=== PATIENT | male | born 2000 | race Caucasian/White ===

== ENCOUNTER 2024-11-11 10:43 | Emergency (ER) | payer SELFPAY ==
[2024-11-11] VITALS (14 sets, daily range): BP systolic 127–157; BP diastolic 78–116; PULSE 100–115; RESP 10–24; TEMP 36.3–36.9; O2SAT 81–100
--- NOTE | ~2024-11-11 | XR_ITS ---
EXAMINATION: XR chest 1V portable 11/11/2024 11:49 INDICATION: Dyspnea and wheezing PROCEDURE: 2 view chest COMPARISON: No prior studies for comparison. FINDINGS: The lungs are clear. The cardiomediastinal silhouette is within normal limits. There are no pleural effusions. There is no pneumothorax suspected. IMPRESSION: 1: NO ACUTE CARDIOPULMONARY DISEASE. Reviewed, dictated and finalized at location B. [employer]
--- NOTE | 2024-11-11 11:21 | ED.ASTHMA ---
HPI - Asthma General Chief Complaint: Asthma <Jason Rodas PA-C - Last Filed: 11/11/24 17:28> Stated Complaint: asthma, sob <Jason Rodas PA-C - Last Filed: 11/11/24 17:28> Time Seen by Provider: 11/11/24 11:00 <Jason Rodas PA-C - Last Filed: 11/11/24 17:28> Source: patient <REGGIE Hess Last Filed: 11/11/24 17:28> Mode of arrival: ambulatory <REGGIE Hess Last Filed: 11/11/24 17:28> Limitations: no limitations <Jason Rodas PA-C - Last Filed: 11/11/24 17:28> History of Present Illness HPI Narrative: This is a 24-year-old male who presents to the ED for chief complaint of possible asthma attack. Patient reports that he ran out of inhaler last night. He has been working outside in the cold and has been having increased wheezing and dyspnea. Also reports that he has had a productive green cough x1 week with chills. States that he is getting ?mouthfuls of sputum production. Patient states he has had asthma as a life but only takes albuterol as needed. Denies chest pain, abdominal pain, nausea, vomiting. No recent hospitalizations for asthma <Jason Rodas PA-C - Last Filed: 11/11/24 17:28> Related Data Allergies/Adverse Reactions: Allergies Allergy/AdvReac Type Severity Reaction Status Date / Time No Known Allergies Allergy Verified 11/11/24 10:44 <Jason Rodas PA-C - Last Filed: 11/11/24 17:28> Review of Systems Review of Systems: All systems as dictated in HPI <REGGIE Hess Last Filed: 11/11/24 17:28> Exam Narrative: GENERAL: Well-appearing, well-nourished, and in no acute distress. HEAD: Normocephalic, atraumatic. EYES: PERRLA and EOMI. ENT: Nares clear, no rhinorrhea or epistaxis. Mucous membranes moist. Oropharynx without tonsillar hypertrophy exudate or other lesions. NECK: Supple. No adenopathy or masses. CHEST: Coarse breath sounds bilaterally. Expiratory wheezes bilaterally. 98% room air. HEART: Regular rate and rhythm. No murmur heard. Normal peripheral pulses. ABDOMEN: Soft, nontender, nondistended, normal active bowel sounds. MSK: Normal range of motion. No edema. SKIN: Warm, dry, no rash. NEURO: Alert and oriented x4. No focal deficits. PSYCH: Normal mood and affect. <Jason Rodas PA-C - Last Filed: 11/11/24 17:28> Course COMMUNICATIONS STRATEGIST/PA Physician Supervision I agree with midlevel documentation; I performed the medical decision making component of this evaluation. <Georgina Dotson MD - Last Filed: 11/11/24 17:30> Reevaluation(s) Reevaluation #1: Patient is doing better overall. There is significant improvement of the wheezing with the hour long breathing treatment and steroids. Still having moderate wheezes so will add magnesium prior to discharge <Jason Rodas PA-C - Last Filed: 11/11/24 17:28> Date: 11/11/24 <Jason Rodas PA-C - Last Filed: 11/11/24 17:28> Time: 12:56 <Jason Rodas PA-C - Last Filed: 11/11/24 17:28> Vital Signs Vital signs: Vital Signs Temperature 97.4 F L 11/11/24 10:53 Pulse Rate 110 H 11/11/24 10:53 Respiratory Rate 20 11/11/24 10:53 Blood Pressure 155/88 H 11/11/24 10:53 Pulse Oximetry 100 11/11/24 10:53 Oxygen Delivery Room Air 11/11/24 10:53 Temperature 98.5 F 11/11/24 14:48 Pulse Rate 102 H 11/11/24 14:48 Respiratory Rate 17 11/11/24 14:48 Blood Pressure 151/78 H 11/11/24 14:48 Pulse Oximetry 98 11/11/24 14:48 Oxygen Delivery Room Air 11/11/24 11:19 <Jason Rodas PA-C - Last Filed: 11/11/24 17:28> Vital Signs Temperature 97.4 F L 11/11/24 10:53 Pulse Rate 110 H 11/11/24 10:53 Respiratory Rate 20 11/11/24 10:53 Blood Pressure 155/88 H 11/11/24 10:53 Pulse Oximetry 100 11/11/24 10:53 Oxygen Delivery Room Air 11/11/24 10:53 Temperature 98.5 F 11/11/24 14:48 Pulse Rate 102 H 11/11/24 14:48 Respiratory Rate 17 11/11/24 14:48 Blood Pressure 151/78 H 11/11/24 14:48 Pulse Oximetry 98 11/11/24 14:48 Oxygen Delivery Room Air 11/11/24 11:19 <Georgina Dotson MD - Last Filed: 11/11/24 17:30> MDM - Asthma MDM Narrative Medical decision making narrative: This is a 24-year-old male who presents to the ED for asthma exacerbation. Vitals show mildly elevated heart rate on arrival. He has just run out of his home albuterol.. Exam shows diffuse wheezes. No overt respiratory distress. Saturating well on room air. Lab work normal white count on CBC. CMP is unremarkable. Chest x-ray does not show any pneumonia. Viral swabs are negative. Presentation consistent with acute flare of asthma. He was given hour long breathing treatment, Solu-Medrol and magnesium here with good relief symptoms. Rx for Medrol Dosepak albuterol as well as Symbicort given Patient will be discharged in stable condition. Supportive measures discussed and return precautions given. Patient is understanding and agreeable with plan for discharge with PCP follow-up. <Jason Rodas PA-C - Last Filed: 11/11/24 17:28> Lab Data Result diagrams: 11/11/24 11:34 11/11/24 11:34 <Jason Rodas PA-C - Last Filed: 11/11/24 17:28> Labs: Lab Results 11/11/24 11/11/24 Range/Units 11:34 11:46 WBC 7.6 (4.5-10.0) K/mm3 RBC 5.23 (4.6-6.20) M/mm3 Hgb 15.4 (14.0-18.0) g/dL Hct 45.0 (42.0-52.0) % MCV 86.0 (80-100) fl MCH 29.4 (26-34) pg MCHC 34.2 (32-36) g/dl RDW 13.2 (11.5-14.5) % Plt Count 200 (150-375) k/mm3 MPV 10.7 H (7.4-10.4) fl Immature Gran % (Auto) Not Reportable Neut % (Auto) Not Reportable Lymph % (Auto) Not Reportable [place] % (Auto) Not Reportable Eos % (Auto) Not Reportable Baso % (Auto) Not Reportable Lymph # (Auto) Not Reportable [place] # (Auto) Not Reportable Eos # (Auto) Not Reportable Baso # (Auto) Not Reportable Abs Immat Gran (auto) Not Reportable Absolute Neuts (auto) Not Reportable Absolute Nucleated RBC Not Reportable Total Counted 100 Neutrophils % (Manual) 56 (46-73) % Band Neutrophils % 8 H (0-6) % Lymphocytes % (Manual) 13 L (18-44) % Monocytes % (Manual) 7 (3-9) % Eosinophils % (Manual) 15 H (0-4) % Basophils % (Manual) 1 (0-1) % Nucleated RBC % Not Reportable Abs Neuts (Manual) 4.86 (1.3-6.7) K/mm3 Abs Lymphs (Manual) 0.98 L (1.1-4.5) K/mm3 Abs Monocytes (Manual) 0.53 (0.1-0.90) K/mm3 Absolute Eos (Manual) 1.14 H (0.02-0.50) K/mm3 Abs Basophils (Manual) 0.07 (0.0-0.1) K/mm3 Platelet Estimate Adequate (Adequate) Schistocytes None seen Sodium 139 (137-145) mmol/L Potassium 3.7 (3.4-5.0) mmol/L Chloride 100 (98-107) mmol/L Carbon Dioxide 31 H (22-30) mmol/L Anion Gap 8 (4-12) mmol/L BUN 9 (9-20) mg/dL Creatinine 0.80 (0.7-1.3) mg/dL Estim Creat Clear Calc 122 ml/min Estimated GFR > 60 (59 - ) Glucose 123 H (65-110) mg/dL Calcium 9.9 (8.4-10.2) mg/dL Total Bilirubin 0.6 (0.2-1.3) mg/dL AST 21 (17-59) U/L ALT 18 (6-50) U/L Alkaline Phosphatase 88 (38-126) U/L Total Protein 8.0 (6.3-8.2) g/dL Albumin 4.8 (3.5-5.1) g/dL Influenza A (RT-PCR) Negative (Negative) Influenza B (RT-PCR) Negative (Negative) RSV (RT-PCR) Negative (Negative) SARS-CoV-2 RNA (RT-PCR) Negative (Negative) <Jason Rodas PA-C - Last Filed: 11/11/24 17:28> Lab Results 11/11/24 11/11/24 Range/Units 11:34 11:46 WBC 7.6 (4.5-10.0) K/mm3 RBC 5.23 (4.6-6.20) M/mm3 Hgb 15.4 (14.0-18.0) g/dL Hct 45.0 (42.0-52.0) % MCV 86.0 (80-100) fl MCH 29.4 (26-34) pg MCHC 34.2 (32-36) g/dl RDW 13.2 (11.5-14.5) % Plt Count 200 (150-375) k/mm3 MPV 10.7 H (7.4-10.4) fl Immature Gran % (Auto) Not Reportable Neut % (Auto) Not Reportable Lymph % (Auto) Not Reportable [place] % (Auto) Not Reportable Eos % (Auto) Not Reportable Baso % (Auto) Not Reportable Lymph # (Auto) Not Reportable [place] # (Auto) Not Reportable Eos # (Auto) Not Reportable Baso # (Auto) Not Reportable Abs Immat Gran (auto) Not Reportable Absolute Neuts (auto) Not Reportable Absolute Nucleated RBC Not Reportable Total Counted 100 Neutrophils % (Manual) 56 (46-73) % Band Neutrophils % 8 H (0-6) % Lymphocytes % (Manual) 13 L (18-44) % Monocytes % (Manual) 7 (3-9) % Eosinophils % (Manual) 15 H (0-4) % Basophils % (Manual) 1 (0-1) % Nucleated RBC % Not Reportable Abs Neuts (Manual) 4.86 (1.3-6.7) K/mm3 Abs Lymphs (Manual) 0.98 L (1.1-4.5) K/mm3 Abs Monocytes (Manual) 0.53 (0.1-0.90) K/mm3 Absolute Eos (Manual) 1.14 H (0.02-0.50) K/mm3 Abs Basophils (Manual) 0.07 (0.0-0.1) K/mm3 Platelet Estimate Adequate (Adequate) Schistocytes None seen Sodium 139 (137-145) mmol/L Potassium 3.7 (3.4-5.0) mmol/L Chloride 100 (98-107) mmol/L Carbon Dioxide 31 H (22-30) mmol/L Anion Gap 8 (4-12) mmol/L BUN 9 (9-20) mg/dL Creatinine 0.80 (0.7-1.3) mg/dL Estim Creat Clear Calc 122 ml/min Estimated GFR > 60 (59 - ) Glucose 123 H (65-110) mg/dL Calcium 9.9 (8.4-10.2) mg/dL Total Bilirubin 0.6 (0.2-1.3) mg/dL AST 21 (17-59) U/L ALT 18 (6-50) U/L Alkaline Phosphatase 88 (38-126) U/L Total Protein 8.0 (6.3-8.2) g/dL Albumin 4.8 (3.5-5.1) g/dL Influenza A (RT-PCR) Negative (Negative) Influenza B (RT-PCR) Negative (Negative) RSV (RT-PCR) Negative (Negative) SARS-CoV-2 RNA (RT-PCR) Negative (Negative) <Georgina Dotson MD - Last Filed: 11/11/24 17:30> Discharge Plan Discharge Clinical Impression: Asthma with acute exacerbation <Jason Rodas PA-C - Last Filed: 11/11/24 17:28> Patient Disposition: Home, Self-Care <Jason Rodas PA-C - Last Filed: 11/11/24 17:28> Condition: Stable <Jason Rodas PA-C - Last Filed: 11/11/24 17:28> Instructions: Antibiotic Form <Jason Rodas PA-C - Last Filed: 12/12/24 17:28> Additional Instructions: Exam and imaging today are reassuring. Please take steroid pack and albuterol as needed. Add Symbicort as a daily inhaled steroid to prevent further exacerbation. Follow-up with PCP on this issue If you have any new or worsening symptoms please return to the ER for further evaluation. <Jason Rodas PA-C - Last Filed: 11/11/24 17:28> Patient Language: E[place] <Jason Rodas PA-C - Last Filed: 11/11/24 17:28> Prescriptions: New albuterol sulfate 90 mcg/actuation HFA aerosol inhaler 2 puff inhalation QID PRN (Reason: shortness of breath or wheezing) Qty: 6.7 0RF budesonide-formoterol 80-4.5 mcg/actuation HFA aerosol inhaler 2 puff inhalation Q12H Qty: 10.2 0RF methylprednisolone [Medrol (Jc)] 4 mg tablets,dose pack See Rx Instructions .ROUTE .COMPLEX Qty: 21 0RF Rx Instructions: for 6 days <Jason Rodas PA-C - Last Filed: 11/11/24 17:28> Follow-up/Referrals: PHYSICIAN NOT ON STAFF,NONSTAFF [Non-Staff] - <Jason Rodas PA-C - Last Filed: 11/11/24 17:28> Time of Disposition: 12:58 <Jason Rodas PA-C - Last Filed: 11/11/24 17:28> 12:58 <Georgina Dotson MD - Last Filed: 11/11/24 17:30>
[2024-11-11] MEDS: IPRATROPIUM BR 0.02% INH SOLN 0.5 MG/2.5 ML VIAL 1 MG INHALATION (11:30)
[2024-11-11] MEDS: ALBUTEROL SULFATE NEB 2.5 MG/3 ML INH 10 MG INHALATION (11:30)
[2024-11-11] MEDS: methylPREDNISolone SOD SUCC 125 MG VIAL IV PUSH (11:47)
[2024-11-11 11:48] LABS: Hemoglobin 15.4 g/dL (14.0-18.0); Mean Corpuscular HGB Conc 34.2 g/dl (32-36); Mean Corpuscular Hemoglobin 29.4 pg (26-34); Mean Platelet Volume 10.7 fl (7.4-10.4); Platelet Count Result 200 k/mm3 (150-375); Red Blood Count 5.23 M/mm3 (4.6-6.20); Red Cell Distribution Width 13.2 % (11.5-14.5); White Blood Count 7.6 K/mm3 (4.5-10.0)
[2024-11-11 12:00] LABS: Alanine Aminotransferase 18 U/L (6-50); Albumin Level 4.8 g/dL (3.5-5.1); Alkaline Phosphatase 88 U/L (38-126); Anion Gap 8 mmol/L (4-12); Aspartate Amino Transferase 21 U/L (17-59); Bilirubin,Total 0.6 mg/dL (0.2-1.3); Blood Urea Nitrogen 9 mg/dL (9-20); Calcium 9.9 mg/dL (8.4-10.2); Carbon Dioxide 31 mmol/L (22-30); Chloride 100 mmol/L (98-107); Estimated CRCL calculation 122 ml/min; Estimated Glomerular Filt Rate > 60; Glucose 123 mg/dL (65-110); Potassium 3.7 mmol/L (3.4-5.0); Sodium 139 mmol/L (137-145)
[2024-11-11 12:25] LABS: Band Neutrophils Percent 8 % (0-6); Lymphocytes Absolute Manual 0.98 K/mm3 (1.1-4.5); Lymphocytes Percent Manual 13 % (18-44); Monocytes Absolute Manual 0.53 K/mm3 (0.1-0.90); Monocytes Percent Manual 7 % (3-9); Neutrophils Absolute Manual 4.86 K/mm3 (1.3-6.7); Neutrophils Percent Manual 56 % (46-73); Total Cells Counted 100
[2024-11-11 12:26] LABS: Basophils Absolute Manual 0.07 K/mm3 (0.0-0.1); Basophils Percent Manual 1 % (0-1); Eosinophils Absolute Manual 1.14 K/mm3 (0.02-0.50); Eosinophils Percent Manual 15 % (0-4); Platelet Estimate Adequate (Adequate); Schistocytes None Seen
[2024-11-11 12:26] LABS: Influenza A QL RT-PCR Negative (Negative); Influenza B QL RT-PCR Negative (Negative); RSV RNA, RT-PCR Negative (Negative); SARS-CoV-2 RNA PCR Negative (Negative)
[2024-11-11] MEDS: MAGNESIUM SULF 1 GM/D5W 100 ML 1 GM/100 ML BAG IVPB (13:12)
== END 2024-11-11 14:49 | disposition home or self-care (01) ==
PROVIDERS: Emergency Provider Physician Assistant
DX: J45.901 Unspecified asthma with (acute) exacerbation (principal)
CPT/HCPCS: 36415; 71045; 80053; 85025; 87637; 94640; 96365; 96375; 99284; J2919; J3475